=== PATIENT | male | born 1980 | race Caucasian/White ===

== ENCOUNTER 2025-07-13 18:15 | Emergency (ER) | payer BC | END 2025-07-13 19:56 | disposition home or self-care (01) | LOC: FB.ED 18:15 | DX: I10 Essential (primary) hypertension (principal); Z88.0 Allergy status to penicillin; Z88.2 Allergy status to sulfonamides; Z88.1 Allergy status to other antibiotic agents; Z79.899 Other long term (current) drug therapy | CPT/HCPCS: 93005; 99284 ==